=== PATIENT | male | born 1990 | race Caucasian/White ===

== ENCOUNTER 2020-11-25 23:12 | Emergency (ER) | payer SELFPAY ==
[2020-11-26] MEDS ORDERED: LORAZEPAM 1MG TABLET PO ONE (01:00)
[2020-11-26 01:52] LABS: BASOPHILS % 0.4 % (0.0-2.0); EOSINOPHILS % 0.8 % (0.0-5.0); HEMOGLOBIN. 16.5 g/dL (14.0-18.0); LYMPHOCYTES % 27.3 % (20.0-50.0); MEAN CORPUSCULAR HEMOGLOBIN 28.8 pg (28.0-32.0); MEAN CORPUSCULAR VOLUME 85.5 fL (80.0-94.0); MEAN PLATELET VOLUME 8.5 fl (7.4-10.4); MONOCYTES % 9.8 % (2.0-8.0); NEUTROPHILS % 61.7 % (40.0-76.0); PLATELET 257 x1000/uL (130-400); RED BLOOD CELL COUNT 5.73 mill/uL (4.7-6.1); RED CELL DISTRIBUTION WIDTH 13.9 % (11.6-14.6)
[2020-11-26 02:45] VITALS: BP 122/78
[2020-11-26 03:45] LABS: CHLORIDE 107 mEq/L (98-107)
== END 2020-11-26 03:15 | disposition home or self-care (01) ==
LOC: ER 23:12
DX: R07.89 Other chest pain (principal); F41.9 Anxiety disorder, unspecified; J45.909 Unspecified asthma, uncomplicated
CPT/HCPCS: 36415; 71045; 80053; 83880; 84484; 85025; 85379; 93005; 99285

== ENCOUNTER 2022-01-05 15:25 | Emergency (ER) | payer OTHER ==
[~2022-01-05] VITALS: Ht 162.6 cm; Wt 71.0 kg
[2022-01-05 15:57] VITALS: BP 128/86
== END 2022-01-05 19:17 | disposition home or self-care (01) ==
LOC: ER 15:25
DX: M25.511 Pain in right shoulder (principal); J45.909 Unspecified asthma, uncomplicated; F41.9 Anxiety disorder, unspecified; Z98.890 Other specified postprocedural states; V43.52XA Car driver injured in collision with other type car in traffic accident, initial encounter; Y93.89 Activity, other specified; Y92.488 Other paved roadways as the place of occurrence of the external cause
CPT/HCPCS: 71046; 99283